=== PATIENT | female | born 1975 ===

== ENCOUNTER 2017-10-06 11:07 | Emergency (ER) | payer MEDICAID, OTHER ==
[2017-10-06 11:08] VITALS: BMI 17.2
--- NOTE | 2017-10-06 11:12 | ED PDOC ---
Arrival/HPI - General Time Seen by Provider: 10/06/17 11:10 Historian: Patient - History of Present Illness Narrative History of Present Illness (Text): 10/06/17 11:11 42 year old female, no significant pmh, psychiatric history including depression /schizophrenia/schizoaffective/drug abuse, allergic to penicillin, complaining of feeling anxious and depress for the past 1 week. Pt. stated that she has been feeling depress and anxious for the past 1 week, no alcohol or drug abuse for the past 1 week, no homicidal or suicidal ideation, no auditory or visual hallucination, no night sweat, no heat/cold intolerance and no weight changes, no chest pain or palpitation, no other medical or psychological complaints. Past Medical History - Provider Review Nursing Documentation Reviewed: Yes - Infectious Disease Hx of Infectious Diseases: None - Tetanus Immunization Tetanus Immunization: Unknown - Past Medical History Past Medical History: No Previous - Cardiac Hx Hypertension: No - Pulmonary Hx Asthma: Yes - Neurological Hx Migraine: Yes Hx Seizures: No - HEENT Hx HEENT Disorder: No - Renal Hx Renal Disorder: No - Integumentary Hx Dermatological Disorder: No - Genitourinary/Gynecological Hx Sexually Transmitted Diseases: No - Psychiatric Hx Anxiety: Yes Hx Bipolar Disorder: Yes Hx Depression: Yes Hx Post Traumatic Stress Disorder: Yes Hx Schizophrenia: Yes Hx Substance Use: No - Past Surgical History Past Surgical History: No Previous - Anesthesia Hx Anesthesia: No Hx Anesthesia Reactions: No Hx Malignant Hyperthermia: No - Suicidal Assessment Feels Threatened In Home Enviroment: No Family/Social History - Physician Review Nursing Documentation Reviewed: Yes Family/Social History: Unknown Family HX Smoking Status: Light Smoker < 10 Cigarettes Daily Hx Alcohol Use: No Hx Substance Use: No Hx Substance Use Treatment: No Allergies/Home Meds Allergies/Adverse Reactions: Allergies almond Allergy (Verified 10/06/17 11:18) RASH nut - unspecified [nut] Allergy (Verified 10/06/17 11:18) SWELLING "All nuts; peanuts and almonds." peanut Allergy (Verified 10/06/17 11:18) RASH Penicillins Allergy (Verified 10/06/17 11:18) SWELLING shellfish derived Allergy (Verified 10/06/17 11:18) RASH Home Medications: Home Meds Medication Instructions Recorded Confirmed clonazePAM [clonAZEPAM] 0.25 mg PO DAILY PRN 09/07/17 10/06/17 Review of Systems - Review of Systems Constitutional: absent: Fatigue, Fevers Eyes: absent: Vision Changes ENT: absent: Hearing Changes Respiratory: absent: SOB, Cough Cardiovascular: absent: Chest Pain Gastrointestinal: absent: Abdominal Pain, Diarrhea, Nausea, Vomiting Skin: absent: Rash, Pruritis, Skin Lesions Neurological: absent: Headache, Dizziness Psychiatric: Anxiety, Depression. absent: Suicidal Ideation Physical Exam Vital Signs Reviewed: Yes Vital Signs Temp Pulse Resp BP Pulse Ox 10/06/17 13:03 98.2 F 85 19 118/69 100 10/06/17 11:40 98 F 79 19 123/53 L 99 10/06/17 11:19 98.5 F 87 17 110/79 99 Temperature: Afebrile Blood Pressure: Normal Pulse: Regular Respiratory Rate: Normal Appearance: Positive for: Well-Appearing, Non-Toxic, Comfortable Pain Distress: None Mental Status: Positive for: Alert and Oriented X 3 - Systems Exam Head: Present: Atraumatic, Normocephalic Pupils: Present: PERRL Extroacular Muscles: Present: EOMI Conjunctiva: Present: Normal Mouth: Present: Moist Mucous Membranes Neck: Present: Normal Range of Motion Respiratory/Chest: Present: Clear to Auscultation, Good Air Exchange. No: Respiratory Distress, Accessory Muscle Use Cardiovascular: Present: Regular Rate and Rhythm, Normal S1, S2. No: Murmurs Abdomen: No: Tenderness, Distention, Peritoneal Signs, Rebound, Guarding Back: Present: Normal Inspection Upper Extremity: Present: Normal Inspection. No: Cyanosis, Edema Lower Extremity: Present: Normal Inspection. No: Edema Neurological: Present: GCS=15, CN II-XII Intact, Speech Normal Skin: Present: Warm, Dry, Normal Color. No: Rashes Psychiatric: Present: Alert, Oriented x 3, Normal Insight, Normal Concentration , Anxious, Depressed Mood Medical Decision Making ED Course and Treatment: 10/06/17 11:12 -Labs/ua/uds -ekg -cxr -PES paged -Observe and reassess 10/06/17 11:54 -I spoke to the PES screener Nicole, discussed about the case, she will come to evaluate the patient 10/06/17 12:52 -Urine hcg is negative. -EKG: NSR @ 84 BPM, no ST elevation or depression, no T wave inversion, compared with previous ekg. -Chest xray show no active disease -Labs show no acute findings -Urinalysis show no UTI -UDS show no acute findings -Pt. is medically clear and stable for psychiatric evaluation, pending psychiatric evaluation 10/06/17 12:53 -Pt. evaluated by the PES Screener and discussed with the [facility] psychiatrist, pt. is clear psychiatrically to be discharged home. -All labs/radiology result and consult discussed with the patient, she agreed to be discharged and follow up outpatient psychiatric clinic. -Discharge home with education on follow up with your own pmd and psychiatrist within 2 days, return to the ER for any new or worsening signs or symptoms. - Lab Interpretations Lab Results: 10/06/17 11:45 10/06/17 11:45 Lab Results 10/06/17 12:00: Urine Opiates Screen Negative, Urine Methadone Screen Negative, Ur Barbiturates Screen Negative, Ur Phencyclidine Scrn Negative, Ur Amphetamines Screen Negative, U Benzodiazepines Scrn Negative, U Oth Cocaine Metabols Negative, U Cannabinoids Screen Negative 10/06/17 12:00: Urine Color Yellow, Urine Appearance Clear, Urine pH 7.5, Ur Specific [place] 1.010, Urine Protein Negative, Urine Glucose (UA) Negative, Urine Ketones Negative, Urine Blood Negative, Urine Nitrate Negative, Urine Bilirubin Negative, Urine Urobilinogen 0.2, Ur Leukocyte Esterase Negative 10/06/17 11:45: WBC 8.0, RBC 3.90, Hgb 12.4, Hct 36.6, MCV 93.8, MCH 31.8, MCHC 33.9, RDW 12.9, Plt Count 261, MPV 10.8, Gran % 69.4 H, Lymph % (Auto) 17.1 L, [place] % (Auto) 12.1 H, Eos % (Auto) 1.1 L, Baso % (Auto) 0.3, Gran # 5.52, Lymph # (Auto) 1.4, [place] # (Auto) 1.0 H, Eos # (Auto) 0.1, Baso # (Auto) 0.02 10/06/17 11:45: Alcohol, Quantitative < 10 10/06/17 11:45: Salicylates < 1 L, Acetaminophen < 10.0 L 10/06/17 11:45: Sodium 143, Potassium 4.1, Chloride 102, Carbon Dioxide 29, Anion Gap 16, BUN 10, Creatinine 0.6 L, Est GFR ( Amer) > 60, Est GFR ( Non-Af Amer) > 60, Random Glucose 104, Calcium 9.3, Total Bilirubin 0.6, AST 36 , ALT 35, Alkaline Phosphatase 84, Total Protein 8.5 H, Albumin 4.4, Globulin 4.1, Albumin/Globulin Ratio 1.1 - RAD Interpretation Radiology Orders: 10/06/17 11:40 CHEST PORTABLE [RAD] Stat HISTORY: [facility] COMPARISON: Comparison chest 10/04/2015 FINDINGS: LUNGS: Minimal bibasilar atelectasis. Minor biapical pleural thickening. No acute consolidation PLEURA: No significant pleural effusion identified, no pneumothorax apparent. CARDIOVASCULAR: Normal. OSSEOUS STRUCTURES: No significant abnormalities. VISUALIZED UPPER ABDOMEN: Normal. OTHER FINDINGS: None. IMPRESSION: Minor bibasilar atelectasis. Mangle Tender: Radiologist - EKG Interpretation EKG Interpretation (Text): 10/06/17 11:55 -EKG: NSR @ 84 BPM, no ST elevation or depression, no T wave inversion, compared with previous ekg. Interpreted by ED Physician: Yes Type: 12 lead EKG Comparison: Com.w/previous EKG - PA / FARM MANAGEMENT AGENT / Resident Statement MD/DO has reviewed & agrees with the documentation as recorded. Disposition/Present on Arrival - Present on Arrival Any Indicators Present on Arrival: No History of DVT/PE: No History of Uncontrolled Diabetes: No Urinary Catheter: No History of Decub. Ulcer: No History Surgical Site Infection Following: None - Disposition Have Diagnosis and Disposition been Completed?: Yes Diagnosis: Psychiatric care Disposition: HOME/ ROUTINE Disposition Time: 12:52 Patient Plan: Discharge Condition: GOOD Additional Instructions: -Discharge home with education on follow up with your own pmd and psychiatrist within 2 days, return to the ER for any new or worsening signs or symptoms. Referrals: [facility] [Outside] - Follow up with primary [facility] [place]] - Follow up with primary Forms: WORK NOTE
[2017-10-06 12:16] VITALS: RESP 19
[2017-10-06 12:17] LABS: PH,URINE 7.5 (4.7-8.0); URINE APPEARANCE CLEAR (CLEAR); URINE BILIRUBIN NEGATIVE (NEGATIVE); URINE BLOOD NEGATIVE (NEGATIVE); URINE COLOR YELLOW (YELLOW); URINE GLUCOSE (UA) NEGATIVE (NEGATIVE); URINE LEUKOCYTE ESTERASE NEGATIVE Leu/uL (NEGATIVE); URINE PROTEIN NEGATIVE mg/dL (<30 mg/dL); URINE UROBILINOGEN 0.2 E.U./dL (<1 E.U./dL)
[2017-10-06 12:21] LABS: BASO # 0.02 K/mm3 (0.0-2.0); BASO % 0.3 % (0.0-3.0); EOS # 0.1 (0.0-0.7); EOS % 1.1 % (1.5-5.0); GRAN # 5.52 (1.4-6.5); GRAN % 69.4 % (50.0-68.0); HEMOGLOBIN 12.4 g/dL (12.0-16.0); LYMPH # 1.4 (1.2-3.4); LYMPH % 17.1 % (22.0-35.0); MEAN CELL VOLUME 93.8 fl (80.0-105.0); MEAN CORPUSCULAR HEMOGLOBIN 31.8 pg (25.0-35.0); MEAN CORPUSCULAR HGB CONC 33.9 g/dl (31.0-37.0); MEAN PLATELET VOLUME 10.8 fl (7.0-11.0); MONO % 12.1 % (1.0-6.0); RBC 3.9 10^6/uL (3.5-6.1); RED CELL DISTRIBUTION WIDTH 12.9 % (11.5-14.5)
[2017-10-06 12:39] LABS: ALB/GLOB RATIO 1.1 (1.1-1.8); ALBUMIN 4.4 g/dL (3.0-4.8); ALT/SGPT 35 U/L (7-56); AST/SGOT 36 U/L (14-36); BLOOD UREA NITROGEN 10 mg/dL (7-21); CALCIUM 9.3 mg/dL (8.4-10.5); GFR AFRICAN-AMERICAN > 60; GFR NON-AFRICAN AMERICAN > 60
[2017-10-06 12:40] LABS: ACETAMINOPHEN < 10.0 ug/ml (10.0-20.0); SALICYLATE < 1 mg/dL (2.0-20.0)
[2017-10-06 12:48] LABS: BARBITURATES, UR NEGATIVE (NEGATIVE); BENZODIAZEPINES, UR NEGATIVE (NEGATIVE); OPIATES, UR NEGATIVE (NEGATIVE); PHENCYCLIDINE, UR NEGATIVE (NEGATIVE)
[2017-10-06 13:04] VITALS: BP 118/69; PULSE 85; TEMP 98.2; O2SAT 100
--- NOTE | 2017-10-06 15:32 | RAD ---
Date of service: 10/06/2017 HISTORY: [facility] COMPARISON: Comparison chest 10/04/2015 FINDINGS: LUNGS: Minimal bibasilar atelectasis. Minor biapical pleural thickening. No acute consolidation PLEURA: No significant pleural effusion identified, no pneumothorax apparent. CARDIOVASCULAR: Normal. OSSEOUS STRUCTURES: No significant abnormalities. VISUALIZED UPPER ABDOMEN: Normal. OTHER FINDINGS: None. IMPRESSION: Minor bibasilar atelectasis.
--- NOTE | 2017-10-07 11:24 | CARD ---
APPROVED REPORT Date of service: 10/06/2017 EKG Measurement Heart [id number] <Conclusion> Normal sinus rhythm Normal ECG
== END 2017-10-06 13:05 | disposition home or self-care (01) ==
LOC: ED 11:07
DX: Z00.8 Encounter for other general examination (principal); F20.9 Schizophrenia, unspecified; F17.210 Nicotine dependence, cigarettes, uncomplicated